=== PATIENT | female | born 1950 | race Caucasian/White ===

== ENCOUNTER 2021-11-16 06:46 | Outpatient (CLI) | payer MEDICARE | END 2021-11-16 06:47 | disposition home or self-care (01) | LOC: BICULT 06:46 | PROVIDERS: ATTEND Family Medicine | DX: Z12.31 Encounter for screening mammogram for malignant neoplasm of breast (principal); R10.33 Periumbilical pain; R19.00 Intra-abdominal and pelvic swelling, mass and lump, unspecified site; N28.1 Cyst of kidney, acquired; Z80.3 Family history of malignant neoplasm of breast | CPT/HCPCS: 76700; 77063; 77067 ==

== ENCOUNTER 2021-12-14 12:32 | Outpatient (CLI) | payer MEDICARE ==
[~2021-12-14 12:32] MED LIST: Iopamidol 370 76% 100 ML VIAL ONE
== END 2021-12-14 12:33 | disposition home or self-care (01) ==
LOC: CT 12:32
PROVIDERS: ATTEND Family Medicine
DX: N28.1 Cyst of kidney, acquired (principal)
CPT/HCPCS: 74178; 82565; Q9967

== ENCOUNTER 2022-08-01 08:53 | Outpatient (CLI) | payer MEDICARE ==
[2022-08-01] MEDS ORDERED: Iopamidol 370 76% 100 ML VIAL ONE (10:20)
== END 2022-08-01 08:54 | disposition home or self-care (01) ==
LOC: CT 08:53
PROVIDERS: ATTEND Urology
DX: N28.1 Cyst of kidney, acquired (principal)
CPT/HCPCS: 74170; 82565

== ENCOUNTER 2022-12-04 13:18 | Outpatient (CLI) | payer MEDICARE | END 2022-12-04 13:19 | disposition home or self-care (01) | LOC: BICMAMMO 13:18 | PROVIDERS: ATTEND Family Medicine | DX: Z12.31 Encounter for screening mammogram for malignant neoplasm of breast (principal); Z80.3 Family history of malignant neoplasm of breast | CPT/HCPCS: 77063; 77067 ==